=== PATIENT | female | born 1950 | race Caucasian/White ===

== ENCOUNTER → 2021-03-08 | Outpatient (CLI) | payer MEDICARE ==
[~2021-03-08] MED LIST: CHILDREN'S ASPI81 MG PO; DULERA 100 MCG8.8 GM INH; GERITOL COMPLE1 EACH PO; IPRAT-ALBUT 0.5-3 ML INH; LEVOFLOXACIN500 MG PO; NICODERM CQ1 EAC1 TD; SPIRIVA RESPIMAT4 GM INH
== END ==
LOC: KOH-I 14:02
DX: Z87.891 Personal history of nicotine dependence (principal); J43.9 Emphysema, unspecified
CPT/HCPCS: 71271